=== PATIENT | female | born 1995 | race Caucasian/White ===

== ENCOUNTER 2016-09-24 03:10 | Inpatient (IN) | payer BC, OTHER ==
[2016-09-24] VITALS (25 sets, daily range): BP systolic 118–150; BP diastolic 66–95
[~2016-09-24] VITALS: Ht 170.2 cm; Wt 74.4 kg
[2016-09-24] MEDS ORDERED: PRENATAL TABLE1 EAC3 PO (03:36)
[2016-09-24 05:23] LABS: EOSINOPHIL (%) 0.4 % (0-5); EOSINOPHIL COUNT 0.1 K/uL (0-0.3); IMMATURE GRANULOCYTE (%) 1.2 % (0.0-0.7); IMMATURE GRANULOCYTE COUNT 0.2 K/uL; INSTRUMENT ABS NEUTROPHIL CT 12.3 K/uL; LYMPHOCYTE COUNT 1.9 K/uL (1.0-2.8); MCH 30.1 PG (29.0-34.0); MCHC 34.3 G/DL (30.0-36.0); MCV 87.7 FL (83-99); MEAN PLAT.VOLUME 11.8 uM^3 (9.5-12.4); MONOCYTE (%) 7.6 % (3-12); MONOCYTE COUNT 1.2 K/uL (0-0.8); NEUTROPHIL (%) 78.5 % (45-76); NEUTROPHIL COUNT 12.3 K/uL (1.8-6.4); PLATELET COUNT 185 K/uL (156-360); RBC DIS.WIDTH-CV 13.4 % (11.8-14.6); RBC DIS.WIDTH-SD 41.8 % (39-53); RED BLOOD COUNT 3.99 M/uL (3.80-5.20); WHITE BLOOD COUNT 15.6 K/uL (4.1-10.2)
[2016-09-24 05:51] LABS: ALKALINE PHOSPHATASE 211 IU/L (3-129); ANION GAP 11 MEQ/L (2-14); CHLORIDE 107 MEQ/L (99-109); GFR ESTIMATE (CALCULATED) > 59 mL/min/; GLUCOSE 84 mg/dL (70-99); LACTATE DEHYDROGENASE 183 IU/L (20-246); POTASSIUM 3.3 MEQ/L (3.7-5.4); SAMPLE HEMOLYSIS CHECK 0; SAMPLE ICTERIC CHECK 0; SAMPLE LIPEMIA CHECK 0; SODIUM 138 MEQ/L (136-147); TOTAL BILIRUBIN 0.4 MG/DL (0.0-1.0); UREA NITROGEN (BUN) 7 mg/dL (9-23); URIC ACID 5.8 mg/dL (3.1-9.2)
[2016-09-24 06:03] LABS: UR CREATININE CONCENTRATION 47.7 MG/DL
[2016-09-25 00:29] VITALS: BP 123/73
[2016-09-25 07:55] VITALS: BP 117/62
[2016-09-25 08:00] LABS: EOSINOPHIL (%) 0.1 % (0-5); HEMATOCRIT 31.3 % (36.0-46.0); IMMATURE GRANULOCYTE (%) 0.8 % (0.0-0.7); IMMATURE GRANULOCYTE COUNT 0.2 K/uL; INSTRUMENT ABS NEUTROPHIL CT 18.8 K/uL; LYMPHOCYTE COUNT 1.5 K/uL (1.0-2.8); MCH 30.3 PG (29.0-34.0); MCHC 34.5 G/DL (30.0-36.0); MCV 87.9 FL (83-99); MONOCYTE (%) 9.9 % (3-12); MONOCYTE COUNT 2.3 K/uL (0-0.8); NEUTROPHIL (%) 82.5 % (45-76); NEUTROPHIL COUNT 18.8 K/uL (1.8-6.4); PLATELET COUNT 158 K/uL (156-360); RBC DIS.WIDTH-CV 13.5 % (11.8-14.6); RBC DIS.WIDTH-SD 43.2 % (39-53); RED BLOOD COUNT 3.56 M/uL (3.80-5.20)
[2016-09-25 08:13] LABS: WHITE BLOOD COUNT 22.8 K/uL (4.1-10.2)
[2016-09-25 14:57] VITALS: BP 121/77
[2016-09-25 23:40] VITALS: BP 132/83
[2016-09-26 07:36] VITALS: BP 123/86
[2016-09-26] MEDS ORDERED: IBUPROFEN800 MG PO (12:29)
[2016-09-26] MEDS ORDERED: Tylenol Extra Streng PO (12:29)
[2016-09-26 15:52] VITALS: BP 134/84
== END 2016-09-26 17:15 | disposition home or self-care (01) | DRG 774 ==
LOC: LDRP-OP 03:10 → 2WEST 03:11
PROVIDERS: Advanced Practice Midwife
DX: O75.2 Pyrexia during labor, not elsewhere classified (principal); O70.0 First degree perineal laceration during delivery; Z3A.39 39 weeks gestation of pregnancy; Z37.0 Single live birth
CPT/HCPCS: 80053; 82570; 83615; 84156; 84550; 85025; 87070; 87075; 87205; C1755; J0595; J3010; J7120; Q0169